=== PATIENT | male | born 1975 | race Hispanic/Latino ===

== ENCOUNTER 2018-04-21 16:21 | Emergency (ER) | payer BC ==
[~2018-04-21 16:21] MED LIST: ASPI-1181 PO; ATOR40TA69 PO; FURO20TA4 PO; GLIP10TA9 PO; LISI10TA7 PO; METF-444 PO; METO50TA18 PO; PANT40TA25 PO; TRAM50TA4 PO
[2018-04-21 17:29] LABS: APPEARANCE,URINE Cloudy (CLEAR); BILIRUBIN,URINE Negative (NEGATIVE); GLUCOSE, URINE (UA) >=1000 mg/dL (NEGATIVE); KETONES,URINE Negative (NEGATIVE); LEUKOCYTE ESTERASE ,URINE Small (NEGATIVE); NITRATE,URINE Negative (NEGATIVE); OCCULT BLOOD,URINE Large (NEGATIVE); PROTEIN,URINE POS 2+ (NEGATIVE)
[2018-04-21 17:34] LABS: COLOR,URINE Orange (YELLOW)
[2018-04-21 17:37] LABS: RBC,URINE >100 /HPF (0-1)
[2018-04-21 17:38] LABS: BACTERIA,URINE Few /HPF (None Seen); MUCUS,URINE Few LPF (None Seen); SQUAMOUS EPITHELIAL CELL,UR 0-2 /HPF (0-2)
[2018-04-21 17:43] LABS: BASOPHILS % (AUTO) 0.7 % (0.0-5.0); EOSINOPHILS % (AUTO) 3.2 % (0.0-8.0); HEMATOCRIT 46.5 % (42-54); MEAN CORPUSCULAR VOLUME 87.8 fL (79-99); MONOCYTES % (AUTO) 4.6 % (3.0-13.0); NEUTROPHILS % (AUTO) 75.5 % (40.0-77.0); PLATELET COUNT (AUTO) 263 K/uL (130-400); RED BLOOD CELL COUNT(AUTO) 5.29 MIL/uL (4.50-6.20); RED CELL DISTRIBUTION WIDTH 13.2 % (11.0-15.5); WHITE BLOOD COUNT (AUTO) 12.4 K/uL (4.8-10.8)
[2018-04-21 17:52] LABS: CREATININE 0.8 mg/dL (0.5-1.5); POTASSIUM 3.7 mmol/L (3.5-5.1)
[2018-04-21 17:56] LABS: ALBUMIN 3.5 g/dL (3.5-5.0); BILIRUBIN,TOTAL 0.2 mg/dL (0.2-1.0); TOTAL PROTEIN, SERUM 7.6 g/dL (6.0-8.3)
== END 2018-04-21 18:51 | disposition home or self-care (01) ==
LOC: EDH 16:21
DX: T83.091A Other mechanical complication of indwelling urethral catheter, initial encounter (principal); N39.0 Urinary tract infection, site not specified; R33.9 Retention of urine, unspecified; E11.9 Type 2 diabetes mellitus without complications; E78.5 Hyperlipidemia, unspecified; I10 Essential (primary) hypertension; I25.810 Atherosclerosis of coronary artery bypass graft(s) without angina pectoris; Z95.1 Presence of aortocoronary bypass graft; Z90.49 Acquired absence of other specified parts of digestive tract
CPT/HCPCS: 36415; 80053; 81001; 85025

== ENCOUNTER 2023-02-21 08:11 | Day surgery (SDC) | payer OTHER ==
[2023-02-16 08:55] LABS: BASOPHILS % (AUTO) 0.9 % (0.0-5.0); EOSINOPHILS # (AUTO) 0.25 K/uL (0.00-0.70); EOSINOPHILS % (AUTO) 2.2 % (0.0-8.0); HEMATOCRIT 45.2 % (42-54); IMMATURE GRANULOCYTE ABSOLUTE 0.06 K/uL (0-1); LYMPHOCYTES # (AUTO) 1.3 K/uL (1.0-4.8); LYMPHOCYTES % (AUTO) 11.8 % (21.0-51.0); MEAN CORPUSCULAR HEMOGLOBIN 30.1 pg (27.0-33.0); MEAN CORPUSCULAR HGB CONC 33.6 g/dL (32.0-36.0); MEAN CORPUSCULAR VOLUME 89.5 fL (79-99); MONOCYTES # (AUTO) 0.4 K/uL (0.1-1.0); MONOCYTES % (AUTO) 3.6 % (3.0-13.0); NEUTROPHILS # (AUTO) 9.1 K/uL (1.8-7.7); PLATELET COUNT (AUTO) 355 K/uL (130-400); RED BLOOD CELL COUNT(AUTO) 5.05 MIL/uL (4.50-6.20); RED CELL DISTRIBUTION WIDTH 12.8 % (11.0-15.5); WHITE BLOOD COUNT (AUTO) 11.3 K/uL (4.8-10.8)
[2023-02-16 09:07] VITALS: BP 129/83; PULSE 91; RESP 18
[2023-02-16 09:08] LABS: INR 1.11 (0.85-1.15); PROTHROMBIN TIME 12.8 SEC (9.6-11.6)
[2023-02-16 09:09] LABS: PARTIAL THROMBOPLASTIN TIME 36.4 SEC (26.3-35.5)
[~2023-02-21] VITALS: Ht 170.2 cm; Wt 80.9 kg
[2023-02-21] VITALS (10 sets, daily range): BP systolic 109–151; BP diastolic 75–87; PULSE 70–88; RESP 14–18
[~2023-02-21 08:11] MED LIST changes: -ASPI-1181 PO; +ASPI-1443 PO; +CLOP75TA32 PO; -FURO20TA4 PO; +GABA-529 PO; -GLIP10TA9 PO; +GLIP1TAB6 PO; -LISI10TA7 PO; -METF-444 PO; -METO50TA18 PO; -PANT40TA25 PO; +RIVA20TA PO; +TIRZ10PE SQ; -TRAM50TA4 PO
[2023-02-21] MEDS ORDERED: HEPARIN 10,000 UNIT/10ML (1,000 UNIT/ML) VIAL ONE (12:45)
[2023-02-21] MEDS ORDERED: IODIXANOL 320 MG/ML 100 ML VIAL ONE ×2 (12:45→14:35)
[2023-02-21] MEDS ORDERED: LIDOCAINE HCL 400MG/20ML VIAL ONE (12:45)
[2023-02-21] MEDS ORDERED: NICARDIPINE 25MG INJ IV ONE (12:46)
[2023-02-21] MEDS ORDERED: NITROGLYCERIN 50MG VIAL ONE ×2 (12:55→13:12)
[2023-02-21] MEDS ORDERED: MIDAZOLAM HCL 1 MG/ML 2ML VIAL ONE ×2 (13:46→14:29)
[2023-02-21] MEDS ORDERED: FENTANYL CITRATE PF 50 MCG/1 ML 2ML VIAL ONE ×2 (13:46→14:55)
[2023-02-21] MEDS ORDERED: CLOPIDOGREL 300MG TAB ONE (15:13)
[2023-02-21] MEDS ORDERED: 0.9%NACL 1000ML 1,000 ML IV SCH (15:30)
== END 2023-02-21 19:05 | disposition home or self-care (01) ==
LOC: DAH 08:11
PROVIDERS: ATTEND Internal Medicine Cardiovascular Disease
DX: I70.211 Atherosclerosis of native arteries of extremities with intermittent claudication, right leg (principal); E11.51 Type 2 diabetes mellitus with diabetic peripheral angiopathy without gangrene; I70.92 Chronic total occlusion of artery of the extremities; E11.41 Type 2 diabetes mellitus with diabetic mononeuropathy; I10 Essential (primary) hypertension; E78.5 Hyperlipidemia, unspecified; I25.10 Atherosclerotic heart disease of native coronary artery without angina pectoris; F17.200 Nicotine dependence, unspecified, uncomplicated; Z79.01 Long term (current) use of anticoagulants; Z79.899 Other long term (current) drug therapy; Z79.82 Long term (current) use of aspirin; Z95.5 Presence of coronary angioplasty implant and graft; Z90.49 Acquired absence of other specified parts of digestive tract; Z98.890 Other specified postprocedural states; Z82.49 Family history of ischemic heart disease and other diseases of the circulatory system; Z83.3 Family history of diabetes mellitus
CPT/HCPCS: 80048; 85025; 85610; 85730; 36415; 71045; 93005; 37228; 75716; 37224; 85347; 82948 ×2; C1887; C1894 ×2; C1769 ×2; C1760; C2623 ×2; C1893; C1725 ×2; J3010 ×2; J3490 ×4; J1644 ×3; J2250 ×2; Q9967 ×2; A4215; A4222; A4221; A4663; A4216; A4606; A4223 ×3; 37225; 37229; 99156; 99157

== ENCOUNTER 2023-03-30 07:02 | Day surgery (SDC) | payer OTHER ==
[2023-03-28 11:27] LABS: EOSINOPHILS # (AUTO) 0.27 K/uL (0.00-0.70); EOSINOPHILS % (AUTO) 2.7 % (0.0-8.0); HEMATOCRIT 44.9 % (42-54); IMMATURE GRANULOCYTE ABSOLUTE 0.07 K/uL (0-1); LYMPHOCYTES % (AUTO) 20.1 % (21.0-51.0); MEAN CORPUSCULAR HEMOGLOBIN 30.3 pg (27.0-33.0); MEAN CORPUSCULAR HGB CONC 33.6 g/dL (32.0-36.0); MONOCYTES # (AUTO) 0.6 K/uL (0.1-1.0); MONOCYTES % (AUTO) 6.4 % (3.0-13.0); NEUTROPHILS # (AUTO) 6.8 K/uL (1.8-7.7); NEUTROPHILS % (AUTO) 69.1 % (40.0-77.0); PLATELET COUNT (AUTO) 271 K/uL (130-400); RED BLOOD CELL COUNT(AUTO) 4.99 MIL/uL (4.50-6.20); RED CELL DISTRIBUTION WIDTH 12.7 % (11.0-15.5); WHITE BLOOD COUNT (AUTO) 9.9 K/uL (4.8-10.8)
[2023-03-28 11:38] LABS: CREATININE 0.8 mg/dL (0.5-1.5); POTASSIUM 4.1 mmol/L (3.5-5.1)
[2023-03-28 11:39] LABS: INR < 0.93 (0.85-1.15); PROTHROMBIN TIME 10.7 SEC (9.6-11.6)
[2023-03-28 11:41] LABS: PARTIAL THROMBOPLASTIN TIME 28.9 SEC (26.3-35.5)
[2023-03-28 11:42] VITALS: BP 147/83; PULSE 79; RESP 18
[2023-03-28 11:51] LABS: B-TYPE NATRIURETIC PEPTIDE 14 pg/mL (0-100)
[2023-03-30] VITALS (11 sets, daily range): BP systolic 115–140; BP diastolic 69–89; PULSE 61–87; RESP 10–18
[~2023-03-30] VITALS: Ht 175.3 cm; Wt 83.6 kg
[2023-03-30] MEDS ORDERED: 0.9%NACL 1000ML 1,000 ML IV ONE (08:14)
[2023-03-30] MEDS ORDERED: IODIXANOL 320 MG/ML 100 ML VIAL ONE (10:38)
[2023-03-30] MEDS ORDERED: HEPARIN 10,000 UNIT/10ML (1,000 UNIT/ML) VIAL ONE (10:38)
[2023-03-30] MEDS ORDERED: FENTANYL CITRATE PF 50 MCG/1 ML 2ML VIAL ONE ×2 (10:38→12:08)
[2023-03-30] MEDS ORDERED: NITROGLYCERIN 50MG VIAL ONE (10:38)
[2023-03-30] MEDS ORDERED: NICARDIPINE 25MG INJ IV ONE (10:38)
[2023-03-30] MEDS ORDERED: MIDAZOLAM HCL 1 MG/ML 2ML VIAL ONE ×2 (10:38→12:09)
[2023-03-30] MEDS ORDERED: LIDOCAINE HCL 400MG/20ML VIAL ONE (10:38)
[2023-03-30] MEDS ORDERED: CLOPIDOGREL 300MG TAB ONE (11:26)
[2023-03-30] MEDS ORDERED: GLUCAGON 1MG KIT 1 MG ML IM PRN (13:30)
[2023-03-30] MEDS ORDERED: 0.9%NACL 1000ML 1,000 ML IV SCH (13:30)
[2023-03-30] MEDS ORDERED: DEXTROSE 50%-WATER 50 ML DISP.SYRIN IV PRN (13:30)
== END 2023-03-30 16:55 | disposition home or self-care (01) ==
LOC: DAH 07:02
PROVIDERS: ATTEND Internal Medicine Cardiovascular Disease
DX: I70.211 Atherosclerosis of native arteries of extremities with intermittent claudication, right leg (principal); I70.92 Chronic total occlusion of artery of the extremities; I10 Essential (primary) hypertension; I25.10 Atherosclerotic heart disease of native coronary artery without angina pectoris; E11.51 Type 2 diabetes mellitus with diabetic peripheral angiopathy without gangrene; E78.2 Mixed hyperlipidemia; Z82.49 Family history of ischemic heart disease and other diseases of the circulatory system; Z83.3 Family history of diabetes mellitus; Z80.9 Family history of malignant neoplasm, unspecified; Z84.1 Family history of disorders of kidney and ureter; Z84.89 Family history of other specified conditions; F17.210 Nicotine dependence, cigarettes, uncomplicated; Z79.82 Long term (current) use of aspirin; Z79.899 Other long term (current) drug therapy; Z79.84 Long term (current) use of oral hypoglycemic drugs; Z95.0 Presence of cardiac pacemaker; Z95.1 Presence of aortocoronary bypass graft; Z90.49 Acquired absence of other specified parts of digestive tract; Z98.890 Other specified postprocedural states
CPT/HCPCS: 80048; 83880; 85025; 85610; 85730; 36415 ×2; 71045; 93005; 75716; 36246; 85347 ×4; 82948 ×2; C1894 ×2; C1769 ×8; C1760; C1893; C1887; J3010 ×2; J3490 ×3; J7030; J1644 ×3; J2250 ×2; Q9967; 75774; 99156; 99157

== ENCOUNTER 2023-04-17 06:47 | Day surgery (SDC) | payer OTHER ==
[2023-04-13 10:45] VITALS: BP 153/85; PULSE 75; RESP 16
[2023-04-13 10:55] LABS: BASOPHILS # (AUTO) 0.08 K/uL (0.00-0.20); BASOPHILS % (AUTO) 1.2 % (0.0-5.0); EOSINOPHILS # (AUTO) 0.25 K/uL (0.00-0.70); EOSINOPHILS % (AUTO) 3.6 % (0.0-8.0); HEMATOCRIT 45.4 % (42-54); IMMATURE GRANULOCYTE ABSOLUTE 0.02 K/uL (0-1); LYMPHOCYTES # (AUTO) 1.7 K/uL (1.0-4.8); LYMPHOCYTES % (AUTO) 23.9 % (21.0-51.0); MEAN CORPUSCULAR HEMOGLOBIN 30.1 pg (27.0-33.0); MEAN CORPUSCULAR HGB CONC 33.3 g/dL (32.0-36.0); MEAN CORPUSCULAR VOLUME 90.6 fL (79-99); MONOCYTES # (AUTO) 0.5 K/uL (0.1-1.0); MONOCYTES % (AUTO) 7.6 % (3.0-13.0); NEUTROPHILS # (AUTO) 4.4 K/uL (1.8-7.7); NEUTROPHILS % (AUTO) 63.4 % (40.0-77.0); PLATELET COUNT (AUTO) 289 K/uL (130-400); RED BLOOD CELL COUNT(AUTO) 5.01 MIL/uL (4.50-6.20); RED CELL DISTRIBUTION WIDTH 12.9 % (11.0-15.5)
[2023-04-13 11:09] LABS: CREATININE 0.8 mg/dL (0.5-1.5); POTASSIUM 3.9 mmol/L (3.5-5.1)
[2023-04-13 11:17] LABS: B-TYPE NATRIURETIC PEPTIDE 8 pg/mL (0-100)
[2023-04-13 11:31] LABS: INR 0.98 (0.85-1.15); PROTHROMBIN TIME 11.4 SEC (9.6-11.6)
[2023-04-13 11:33] LABS: PARTIAL THROMBOPLASTIN TIME 31.7 SEC (26.3-35.5)
[2023-04-17] VITALS (8 sets, daily range): BP systolic 124–152; BP diastolic 70–89; PULSE 64–85; RESP 12–19
[~2023-04-17] VITALS: Ht 175.3 cm; Wt 82.1 kg
[~2023-04-17 06:47] MED LIST changes: +ERGO500093 PO
[2023-04-17] MEDS ORDERED: 0.9%NACL 1000ML 1,000 ML IV ONE (07:07)
[2023-04-17] MEDS ORDERED: IODIXANOL 320 MG/ML 100 ML VIAL ONE (09:09)
[2023-04-17] MEDS ORDERED: FENTANYL CITRATE PF 50 MCG/1 ML 2ML VIAL ONE ×2 (09:09→10:59)
[2023-04-17] MEDS ORDERED: LIDOCAINE HCL 400MG/20ML VIAL ONE (09:09)
[2023-04-17] MEDS ORDERED: MIDAZOLAM HCL 1 MG/ML 2ML VIAL ONE ×2 (09:09→10:17)
[2023-04-17] MEDS ORDERED: HEPARIN 10,000 UNIT/10ML (1,000 UNIT/ML) VIAL ONE (09:09)
[2023-04-17] MEDS ORDERED: NITROGLYCERIN 50MG VIAL ONE (09:10)
[2023-04-17] MEDS ORDERED: NICARDIPINE 25MG INJ IV ONE (09:10)
== END 2023-04-17 14:30 | disposition home or self-care (01) ==
LOC: DAH 06:47
PROVIDERS: ATTEND Internal Medicine Cardiovascular Disease
DX: I70.211 Atherosclerosis of native arteries of extremities with intermittent claudication, right leg (principal); I70.92 Chronic total occlusion of artery of the extremities; E11.51 Type 2 diabetes mellitus with diabetic peripheral angiopathy without gangrene; I10 Essential (primary) hypertension; E78.2 Mixed hyperlipidemia; I25.2 Old myocardial infarction; E11.41 Type 2 diabetes mellitus with diabetic mononeuropathy; Z79.899 Other long term (current) drug therapy; Z79.01 Long term (current) use of anticoagulants; Z87.891 Personal history of nicotine dependence; Z95.5 Presence of coronary angioplasty implant and graft; Z82.49 Family history of ischemic heart disease and other diseases of the circulatory system; Z83.3 Family history of diabetes mellitus; Z79.84 Long term (current) use of oral hypoglycemic drugs
CPT/HCPCS: 80048; 83880; 85025; 85610; 85730; 36415; 71045; 93005; 75710; 36140; 85347; 82948 ×2; C1769 ×6; C1887; C1894; J3010 ×2; J3490 ×3; J7030; J1644 ×2; J2250 ×2; Q9967; A4215; A4222; A4221; A4663; A4216; A4606; A4223 ×3; 36005; 99156; 99157

== ENCOUNTER → 2024-02-08 | Outpatient (CLI) | payer OTHER ==
[~2024-02-08] MED LIST changes: -ASPI-1443 PO; -GABA-529 PO; +PIND5 PO; +PREG100C56 PO
[2024-02-08 15:08] LABS: BASOPHILS % (AUTO) 0.8 % (0.0-5.0); EOSINOPHILS % (AUTO) 2.4 % (0.0-8.0); HEMATOCRIT 45.2 % (42-54); IMMATURE GRANULOCYTE ABSOLUTE 0.06 K/uL (0-1); LYMPHOCYTES % (AUTO) 15.9 % (21.0-51.0); MEAN CORPUSCULAR HEMOGLOBIN 30.4 pg (27.0-33.0); MEAN CORPUSCULAR HGB CONC 33.8 g/dL (32.0-36.0); MEAN CORPUSCULAR VOLUME 89.9 fL (79-99); MONOCYTES # (AUTO) 0.9 K/uL (0.1-1.0); MONOCYTES % (AUTO) 7.5 % (3.0-13.0); NEUTROPHILS % (AUTO) 72.9 % (40.0-77.0); PLATELET COUNT (AUTO) 250 K/uL (130-400); RED BLOOD CELL COUNT(AUTO) 5.03 MIL/uL (4.50-6.20); RED CELL DISTRIBUTION WIDTH 12.9 % (11.0-15.5); WHITE BLOOD COUNT (AUTO) 12.3 K/uL (4.8-10.8)
[2024-02-08 15:18] LABS: CREATININE 1.1 mg/dL (0.5-1.3); POTASSIUM 3.9 mmol/L (3.5-5.1)
[2024-02-08 15:19] LABS: INR 0.95 (0.85-1.15); PROTHROMBIN TIME 10.3 SEC (9.6-11.6)
== END | disposition home or self-care (01) ==
LOC: LAB 14:19
PROVIDERS: ATTEND Internal Medicine Cardiovascular Disease
DX: I73.9 Peripheral vascular disease, unspecified (principal)
CPT/HCPCS: 36415; 80048; 85025; 85610; 85730

== ENCOUNTER → 2024-05-29 | Outpatient (CLI) | payer OTHER ==
[2024-05-29 12:28] LABS: CHOLESTEROL 124 mg/dL (<200); HDL CHOLESTEROL 38 mg/dL (29-71); LDL DIRECT 80 mg/dL (0-99); TRIGLYCERIDES 100 mg/dL (30-200)
== END | disposition home or self-care (01) ==
LOC: LAB 08:32
PROVIDERS: ATTEND Internal Medicine Cardiovascular Disease
DX: E78.5 Hyperlipidemia, unspecified (principal)
CPT/HCPCS: 36415; 80061